=== PATIENT | male | born 1990 | race Native Hawaiian/Other Pacific Islander ===

== ENCOUNTER 2022-12-06 10:33 | Emergency (ER) | payer OTHER ==
[~2022-12-06] VITALS: Ht 175.3 cm; Wt 63.5 kg
[2022-12-06 10:37] VITALS: BP 109/80; TEMP 98
== END 2022-12-06 12:00 | disposition home or self-care (01) ==
LOC: ED 10:33
DX: T63.441A Toxic effect of venom of bees, accidental (unintentional), initial encounter (principal); T78.40XA Allergy, unspecified, initial encounter; X58.XXXA Exposure to other specified factors, initial encounter; Y92.89 Other specified places as the place of occurrence of the external cause
CPT/HCPCS: 96374; 96375; 99284; J1200; J2930

== ENCOUNTER 2023-02-22 02:56 | Emergency (ER) | payer OTHER ==
[~2023-02-22] VITALS: Ht 175.3 cm; Wt 54.4 kg
[2023-02-22 04:38] VITALS: BP 117/73; TEMP 97.3
== END 2023-02-22 04:38 | disposition home or self-care (01) ==
LOC: ED 02:56
DX: L02.413 Cutaneous abscess of right upper limb (principal); F19.90 Other psychoactive substance use, unspecified, uncomplicated; F17.210 Nicotine dependence, cigarettes, uncomplicated; V29.498A Other motorcycle driver injured in collision with other motor vehicles in traffic accident, initial encounter; R51.9 Headache, unspecified; M25.552 Pain in left hip
CPT/HCPCS: 96372; 99283; J0696; J1885